=== PATIENT | male | born 2000 | race Hispanic/Latino ===

== ENCOUNTER 2023-11-09 06:57 | Emergency (ER) | payer SELFPAY ==
[2023-11-09 07:02] VITALS: BP 132/94
[2023-11-09 07:40] LABS: COVID-19 Antigen Negative (Negative)
--- NOTE | 2023-11-09 08:31 | ED.GENMED ---
History of Present Illness
General
Chief Complaint: Throat Problem
Time Seen by Provider: 11/09/23 08:24
Travel History
Have you had any contact with someone who has COVID-19?: No
Do you have any symptoms of coronavirus? Fever > 100 degrees, chills, cough, shortness of breath, sore throat, loss of taste or smell, muscle aches, or headache?: Yes
Symptoms:: sore thoat
History of Present Illness
History of Present Illness:
23-year-old Polish-speaking male presents to the emergency department for evaluation of sore throat fever for the past 2 days. Last took Tylenol yesterday. No ill contacts at home. Denies any coughing or vomiting.
Past History
Past History
ED Past Medical History: None
ED Past Surgical History: None
Social History
Tobacco: Non-smoker
Review of Systems
Review of Systems
Allergies reviewed?: Yes
All Other Systems: ROS reviewed and negative except as documented in HPI and ROS
Phy Exam
Physical Exam
Physical Exam:
GEN: Well appearing, NAD, WDWN
HEENT: Oral mucosa moist, no scleral icterus, oropharynx erythematous with tonsillar hypertrophy and exudates, midline uvula, no e/o DRY END TESTER
Cardiac: Regular rate and rhythm
Lung: No respiratory distress, no tachypnea
MSK: No gross deformity or injuries
Skin: Good color, no pallor or jaundice, no rashes
Neuro: AO x3, moves all extremities freely
Psych: Calm, cooperative
Course
Orders/Labs/Results
Orders:
Orders
11/09/23 07:15
COVID-19 Antigen Urgent
Source: Nasal Swab
INF RAPID [Influenza A+B Rapid Molecular] Urgent
LAURA Source: Nasal Swab
Specimen Description:
Date Specimen was Collected: 11/09/23
Time Specimen was Collected: 07:15
Rapid Strep Group A Urgent
LAURA Source: Throat/Pharynx
Specimen Description:
Date Specimen was Collected: 11/09/23
Time Specimen was Collected: 07:15
Vital Signs
Initial and Last Documented VS:
Initial Vital Signs
Temp Pulse Resp BP Pulse Ox
98.2 F 92 16 132/94 99
11/09/23 07:02 11/09/23 07:02 11/09/23 07:02 11/09/23 07:02 11/09/23 07:02
Last Documented Vital Signs
Temp Pulse Resp BP Pulse Ox
98.2 F 92 16 132/94 99
11/09/23 07:02 11/09/23 07:02 11/09/23 07:02 11/09/23 07:02 11/09/23 07:02
MDM/Problems Addressed
MDM/Problems Addressed:
Positive strep test, exam urnemarkable for signs of DRY END TESTER/RPA. Will treat w/ amoxicillin, no indication for labs/imaging
*Critical Care Note
Total Time (30-74mins, 75-104mins- exclusive of procedures): Not Applicable
ED Attending Note
-
Portions of this chart may have been created with voice recognition software.� Occasional wrong word or��sound alike� substitutions may have occurred due to the inherent limitations of voice recognition software.
Discharge Plan
Departure
Patient Disposition: Home (Routine Discharge)
Date of Disposition: 11/09/23
Time of Disposition: 08:31
Patient with high blood pressure during this ER visit?: No
Discharge Problem:
Acute streptococcal pharyngitis
Instructions: Strep Throat (DC)
Prescriptions:
New
amoxicillin 500 mg capsule
500 mg PO BID 10 Days Qty: 20 0RF
No Action
famotidine 20 MG tablet
20 mg PO BID Qty: 14 0RF
hydroxyzine HCl 25 MG tablet
25 mg PO Q6HPRN PRN (Reason: itching and nausea) Qty: 20 0RF
Interventions
Interventions:
*Risk Screen - Suicide Last Done: 11/09/23 07:04
*General Assessment Last Done: 11/09/23 07:04
*Neglect/Abuse Screening Last Done: 11/09/23 07:04
*ED COVID-19 Vaccine History Last Done: 11/09/23 07:04
*Nursing Disposition Last Done: 11/09/23 08:40
Discharge Date and Time
Discharge Date/Time: 11/09/23 08:41
Print Language: ISRAELI
== END 2023-11-09 08:41 | disposition home or self-care (01) ==
LOC: EMR 06:57
PROVIDERS: EMERGENCY PHYSICIAN Emergency Medicine
DX: J02.0 Streptococcal pharyngitis (principal); Z11.52 Encounter for screening for COVID-19
CPT/HCPCS: 99283; 87070; 87502; 87811; 87880